=== PATIENT | female | born 1970 | race Caucasian/White ===

== ENCOUNTER 2018-11-24 18:33 | Emergency (ER) | payer BC ==
[2018-11-24] MEDS ORDERED: Acetaminophen/oxyCODONE 325-5 MG Tab PO ONE (19:19)
--- NOTE | 2018-11-24 19:19 | EDM.PDOC ---
ED HPI GENERAL MEDICAL PROBLEM - General Chief Complaint: Upper Extremity Injury/Pain Stated Complaint: SHOULDER INJURY Time Seen by Provider: 11/24/18 18:46 Source of Information: Reports: Patient, RN Notes Reviewed History Limitations: Reports: No Limitations - History of Present Illness INITIAL COMMENTS - FREE TEXT/NARRATIVE: Patient is a 48-year-old female who presents to the ED for evaluation of a right shoulder injury. She notes that she injured her right shoulder about one month ago when lifting items from a truck at work. She was evaluated by a provider at the [facility], and subsequently had an MRI done that showed 2 tears in her right rotator cuff. She has been in a shoulder immobilizer since the clinic appointment. She was told someone in orthopedic surgery was going to follow up with her, but she has not heard anything with the orthopedic surgeon's office. She is not aware of the orthopedic surgeons name. The patient notes that the pain has increased daily, and now shoots down her right arm entirely. She did call the provider in the [facility] and she was told to take 2 tablets of hydrocodone at a time versus the 1, she states this is still not provided her any pain relief. The hydrocodone prescription that she had is the 5/325 Q4-6 hours. She states that she has not had any further trauma or injury to the arm. She notes that the pain has increased over the last week. Right Shoulder Pain Score (Numeric/FACES): 10 - Related Data Allergies Allergy/AdvReac Type Severity Reaction Status Date / Time No Known Allergies Allergy Verified 11/24/18 18:44 Home Meds: Home Meds oxyCODONE HCl/Acetaminophen [Oxycodone-Acetaminophen 5-325] 1 tab PO Q6H #20 tablet 11/24/18 [Rx] Past Medical History - Past Surgical History GI Surgical History: Reports: Cholecystectomy Musculoskeletal Surgical History: Reports: Other (See Below) Other Musculoskeletal Surgeries/Procedures:: rotator cuff tear right shoulder Social & Family History - Tobacco Use Smoking Status *Q: Current Every Day Smoker Years of Tobacco use: 25 Packs/Tins Daily: 0.4 - Caffeine Use Caffeine Use: Reports: Soda - Recreational Drug Use Recreational Drug Use: No Review of Systems - Review of Systems Review Of Systems: See Below Constitutional: Reports: No Symptoms Eyes: Reports: No Symptoms Ears: Reports: No Symptoms Nose: Reports: No Symptoms Mouth/Throat: Reports: No Symptoms Respiratory: Reports: No Symptoms Cardiovascular: Reports: No Symptoms GI/Abdominal: Reports: No Symptoms Genitourinary: Reports: No Symptoms Musculoskeletal: Reports: Shoulder Pain (Right shoulder pain) Skin: Reports: No Symptoms Neurological: Denies: Numbness, Tingling Psychiatric: Reports: No Symptoms ED EXAM, GENERAL - Physical Exam Exam: See Below Exam Limited By: No Limitations General Appearance: Alert, WD/WN, Mild Distress (patient is crying at initial presentation) Head: Atraumatic, Normocephalic Neck: Normal Inspection, Supple, Non-Tender, Full Range of Motion Respiratory/Chest: No Respiratory Distress, Lungs Clear, Normal Breath Sounds, No Accessory Muscle Use, Chest Non-Tender Cardiovascular: Normal Peripheral Pulses, Regular Rate, Rhythm, No Murmur Peripheral Pulses: 3+: Radial (L), Radial (R) Extremities: Normal Inspection, Normal Capillary Refill, Limited Range of Motion (pt in R arm immobilizer and is unwilling to allow me to examine her R arm.) Neurological: Alert, Oriented, Normal Cognition, No Motor/Sensory Deficits Psychiatric: Normal Affect, Normal Mood Skin Exam: Warm, Dry, Intact, Normal Color, No Rash Course - Vital Signs Last Recorded V/S: Last Vital Signs Temp 97.3 F 11/24/18 18:47 Pulse 63 11/24/18 18:47 Resp 20 11/24/18 18:47 BP 116/83 11/24/18 18:47 Pulse Ox 97 11/24/18 18:47 - Orders/Labs/Meds Meds: Medications Discontinued Medications Generic Name Dose Route Start Last Admin Trade Name Edwin PRN Reason Stop Dose Admin Oxycodone/Acetaminophen 1 tab 11/24/18 19:19 11/24/18 19:23 Percocet 325-5 Mg PO 11/24/18 19:20 1 tab ONETIME ONE Administration - Re-Assessments/Exams Free Text/Narrative Re-Assessment/Exam: 11/24/18 19:24 Patient presents to the ED for the evaluation of a Right shoulder injury. I have ordered oxycodone 5/325 to see if this doesn't provide her better relief. If this does, I will provide her some tabs for further pain relief until she can follow up with [facility] next week for a change in her medications. 11/24/18 20:04 Patient was re-assessed at bedside, and states that she feels much better and her pain is under control at this time, I will provide her with a few tablets of oxycodone 5/325 and have directed her to f/u with [facility] on Tuesday to see where the ortho referral is, and for continuation of the oxycodone. I have directed her to take the hydrocodone she has to a pharmacy to be destroyed. She is understanding of this. Departure - Departure Time of Disposition: 20:06 Disposition: Home, Self-Care 01 Condition: Fair Clinical Impression: Right shoulder pain Qualifiers: Chronicity: acute Qualified Code(s): M25.511 - Pain in right shoulder - Discharge Information *PRESCRIPTION DRUG MONITORING PROGRAM REVIEWED*: No *COPY OF PRESCRIPTION DRUG MONITORING REPORT IN PATIENT ANGEL: No Prescriptions: oxyCODONE HCl/Acetaminophen [Oxycodone-Acetaminophen 5-325] 1 tab PO Q6H #20 tablet Instructions: Pain Medicine Instructions, [id number] Referrals: Michelle Hart [facility]ER [Primary Care Provider] - Forms: ED Department Discharge Additional Instructions: You have been evaluated in the ED today for your right shoulder pain. You have been provided with a prescription for oxycodone/acetaminophen 5/325, please take one tab every 6 hours as needed for pain relief. This has been electronically [facility] to the [place] [facility]. Recommend that you take the hydrocodone tablets currently have to a pharmacy to be destroyed, please follow up with the [facility] on Tuesday to see how the ortho referral is coming and for possible continuation of the oxycodone if the ortho referral is going to take time. Please return to the ED if your symptoms should change or worsen.
== END 2018-11-24 20:23 | disposition home or self-care (01) ==
LOC: JD.ED 18:33
DX: M25.511 Pain in right shoulder (principal); F17.210 Nicotine dependence, cigarettes, uncomplicated
CPT/HCPCS: 99283; A9270